=== PATIENT | male | born 1995 ===

== ENCOUNTER 2017-02-11 11:52 | Emergency (ER) | payer OTHER, MEDICAID ==
[2017-02-11] MEDS ORDERED: diPHENhydraMINE IV* 50 MG/ML 1 ml VIAL (BENADRYL) IV ONE (12:36)
[2017-02-11 13:12] LABS: Hematocrit 45 % (42-52); Hemoglobin 15.5 g/dl (14.0-18.0); Mean Corpuscular HGB Conc 35 g/dl (31-36); Mean Corpuscular Hemoglobin 32 pg (27-31); Mean Corpuscular Volume 91 fL (80-94); Mean Platelet Volume 7 um3 (7.4-10.4); Red Blood Count 4.92 10^6/ul (4.0-5.4); Red Cell Distribution Width 12 % (10.5-15); White Blood Count 13.7 10^3/ul (3.5-10.8)
[2017-02-11 13:20] LABS: Urine Bacteria Absent (Absent); Urine Bilirubin Negative (Negative); Urine Glucose Negative (Negative); Urine Nitrite Negative (Negative)
--- NOTE | 2017-02-11 13:26 | RAD ---
INDICATION: Seizure. COMPARISON: None. TECHNIQUE: Contiguous axial sections of the brain were obtained from the skull base to the vertex without contrast. FINDINGS: The ventricles, cisterns and sulci are within normal limits. The scherer-white matter differentiation is adequately maintained and there is no sulcal effacement. No significant focal abnormality or mass effect is present. There is no evidence for intracranial hemorrhage. 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 There is no definite acute traumatic fracture. The visualized portion of the paranasal sinuses and mastoid air cells appear clear. IMPRESSION: Postsurgical changes indicate bifrontal craniectomies without definite signs of acute traumatic injury.
[2017-02-11 13:35] LABS: ALT 18 U/L (7-52); AST 23 U/L (13-39); Albumin 4.4 g/dL (3.2-5.2); Alkaline Phosphatase 95 U/L (34-104); Anion Gap 7 mmol/L (2-11); BUN/Creatinine Ratio 13.8 (8-20); Blood Urea Nitrogen 13 mg/dL (6-24); CO2 Carbon Dioxide 26 mmol/L (22-32); Chloride 103 mmol/L (101-111); EGFR Non-African American 103.4 (>60); Globulin 2.8 g/dL (2-4); Glucose 126 mg/dL (70-100); Magnesium 2.2 mg/dL (1.9-2.7); Potassium 3.8 mmol/L (3.5-5.0); Sodium 136 mmol/L (133-145); Total Protein 7.2 g/dL (6.4-8.9)
[2017-02-11 14:20] LABS: Alcohol < 10 mg/dL (<10)
[2017-02-11 19:27] VITALS: BP 143/59
--- NOTE | 2017-02-14 12:25 | ED ---
Rama Vigil Thomas, scribed for Luis Valentin MD on 02/11/17 at 1246 . Syncope/Near Syncope - HPI Summary HPI Summary: The pt is a 21 y/o M with seizures and severe autism BIBA after he fell out of his chair at school and struck the right side of his head. His mother is present and supplies some history as well as the school nurse at [employer], who I spoke with at 12:40. Per school nurse, the patient was sitting in his chair and began to drool and his arms became stiff. He fell to his right and struck the right side of his body and his R-sided forehead. His arms and legs were stiff for three minutes. He then became combative and after a few minutes began to respond to his name. He was sleepy until the ambulance arrived. He last had a seizure two years ago. The patients mother says that after his seizures he normally sleeps for the rest of the day, but he is awake today. He had a cold a week ago and has been coughing at night. He denies a fever. He ate breakfast today. He takes oxcarbazepine for his seizures. PMHx: severe autism, seizures. PSHx: craniotomy. SHx: no smoking, no drinking. FHx: negative for autism. - History Of Current Complaint Chief Complaint: EDSeizure Time Seen by Provider: 02/11/17 12:18 Hx Obtained From: Family/Preparation Plant Supervisor - mother is present and supplies history, Other: - I spoke with the school nurse at [employer], who supplies history Hx From Patient Unobtainable Due To: Other - Patient has severe autism Onset/Duration: Sudden Onset, Lasting Minutes - seizure was shortly prior to arrival, Resolved Context: Witnessed - by the school nurse Activity At Onset: Other - sitting on a chair Associated Head Trauma: Yes Aggravating Factor(s): Nothing Alleviating Factor(s): Spontaneous Resolution Associated Signs And Symptoms: Seizure, Other - Cold (a week ago), cough; NEVATIVE: fever Related History: Similar Episode/Dx as - Hx of seizures with the last seizure a year ago - Allergies/Home Medications Allergies/Adverse Reactions: Allergies Allergy/AdvReac Type Severity Reaction Status Date / Time No Known Drug Allergy Allergy See Comment Verified 02/11/17 12:36 PMH/Surg Hx/FS Hx/Imm Hx Previously Healthy: No Neurological History: Reports: Hx Seizures Psychiatric History: Reports: Hx Autism - Surgical History Surgery Procedure, Year, and Place: Craniotomy Infectious Disease History: Yes Infectious Disease History: Denies: Traveled Outside the [place] in Last 30 Days - Family History Known Family History: Positive: Other - Negative for autism. - Social History Occupation: Student Lives: With Family Alcohol Use: None Substance Use Type: Reports: None Smoking Status (MU): Never Smoked Tobacco Review of Systems Negative: Fever, Chills Negative: Erythema - eyes Negative: Sore Throat Negative: Chest Pain Positive: Cough. Negative: Shortness Of Breath Negative: Abdominal Pain, Vomiting, Nausea Negative: dysuria, hematuria Negative: Myalgia, Edema - legs Negative: Rash Neurological: Other - Seizure with head trauma All Other Systems Reviewed And Are Negative: Yes Physical Exam - Summary Physical Exam Summary: Constitutional: Well-developed, Well-nourished, Alert. (-) Distressed Skin: Warm, Dry HENT: Normocephalic; Atraumatic Eyes: Conjunctiva normal Neck: Musculoskeletal ROM normal neck. (-) JVD, (-) Stridor, (-) Tracheal deviation Cardio: Rhythm regular, rate normal, Heart sounds normal; Intact distal pulses; The pedal pulses are 2+ and symmetric. Radial pulses are 2+ and symmetric. (-) Murmur Pulmonary/Chest wall: Effort normal. (-) Respiratory distress, (-) Wheezes, (-) Rales Abd: Soft, (-) Tenderness, (-) Distension, (-) Guarding, (-) Rebound Musculoskeletal: (-) Edema Lymph: (-) Cervical adenopathy Neuro: Alert. He is nonverbal but he is interactive and follows commands. Psych: Mood and affect Normal Triage Information Reviewed: Yes Vital Signs On Initial Exam: Initial Vitals Temp Pulse Resp BP Pulse Ox 99.5 F 127 18 143/59 97 02/11/17 12:26 02/11/17 12:26 02/11/17 12:26 02/11/17 12:26 02/11/17 12:26 Vital Signs Reviewed: Yes - [place] Coma Scale Coma Scale Total: 15 Diagnostics - Vital Signs Vital Signs Temp Pulse Resp BP Pulse Ox 02/11/17 12:26 99.5 F 127 18 143/59 97 - Laboratory Result Diagrams: 02/11/17 12:54 02/11/17 12:54 Lab Statement: Any lab studies that have been ordered have been reviewed, and results considered in the medical decision making process. - CT CT Brain CT Interpretation: No Acute Changes - Postsurgical changes indicate bifrontal craniectomies without definite signs of acute traumatic injury. ED physician has reviewed this report and agrees. CT Interpretation Completed By: Radiologist - EKG 12:32 Cardiac Rate: Tachycardia - 108 BPM EKG Rhythm: Sinus Tachycardia EKG Interpretation: No STEMI. 13:32 Cardiac Rate: NL - 86 BPM EKG Rhythm: Sinus Rhythm EKG Interpretation: No STEMI. Course/Dx Assessment/Plan: The pt is a 21 y/o M with seizures and severe autism BIBA after he fell out of his chair at school and struck the right side of his head. His mother is present and supplies some history as well as the school nurse at [employer], who I spoke with at 12:40. Per school nurse, the patient was sitting in his chair and began to drool and his arms became stiff. He fell to his right and struck the right side of his body and his R-sided forehead. His arms and legs were stiff for three minutes. He then became combative and after a few minutes began to respond to his name. He was sleepy until the ambulance arrived. He last had a seizure two years ago. The patients mother says that after his seizures he normally sleeps for the rest of the day, but he is awake today. He had a cold a week ago and has been coughing at night. He denies a fever. He ate breakfast today. He takes oxcarbazepine for his seizures. PMHx: severe autism, seizures. PSHx: craniotomy. SHx: no smoking, no drinking. FHx: negative for autism. In the ED course the patient was given Benadryl. Bloodwork, UA, and urine toxicology was obtained. CT Brain shows postsurgical changes indicate bifrontal craniectomies without definite signs of acute traumatic injury. ED physician has reviewed this report and agrees. The patient is back to his baseline mental status. The patient is diagnosed with breakthrough seizures and URI. He is stable and will be discharged home. Patient s mother is agreeable to this plan. - Diagnoses Provider Diagnoses: Breakthrough seizure, URI (upper respiratory infection) Discharge - Discharge Plan Condition: Stable Disposition: HOME Referrals: Lamonte Lomeli MD [Primary Care Provider] - The documentation as recorded by the Rama silva Thomas accurately reflects the service I personally performed and the decisions made by me, Luis Valentin MD.
== END 2017-02-11 14:16 | disposition home or self-care (01) ==
LOC: ED 11:52
DX: J06.9 Acute upper respiratory infection, unspecified (principal); R05 Cough; R56.9 Unspecified convulsions
CPT/HCPCS: 36415; 70450; 80053; 80320; 81003; 81015; 83605; 83735; 85025; 85610; 93005; 96374; 99282; G0480; J1200